=== PATIENT | female | born 1985 | race Caucasian/White ===

== ENCOUNTER → 2016-04-20 | Outpatient (CLI) | payer OTHER ==
--- NOTE | 2016-04-20 13:51 | US ---
Thyroid Ultrasound History: Enlarged thyroid. Possible nontoxic goiter (E04.9). Findings: There is diffusely heterogeneous echotexture to the right and left lobes of the thyroid. No focal mass is seen. Right lobe thyroid: The right lobe of the thyroid measures 4.9 x 2.5 x 2.2 cm. There is normal color flow pattern to the right lobe of the thyroid. Left lobe thyroid: The left lobe of the thyroid measures 5.1 x 2.3 x 1.8 cm. There is normal color fl ow pattern to the left lobe of the thyroid. No significant lymphadenopathy is seen. Benign-appearing lymph nodes are seen bilaterally along the c ervical chain. Impression: Diffusely heterogeneous echotexture to the right and left lobes of the thyroid with mild enlargement diffusely. No focal abnormality. This pattern can be seen with mild goiter versus possibi lity of thyroiditis. Clinical correlation recommended.
== END ==
LOC: FIMAGING 12:18
PROVIDERS: ATTEND Obstetrics & Gynecology
DX: E04.9 Nontoxic goiter, unspecified (principal)

== ENCOUNTER → 2017-08-20 | Outpatient (CLI) | payer OTHER | LOC: FIMAGING 07:37 | PROVIDERS: ATTEND Obstetrics & Gynecology | DX: O09.292 Supervision of pregnancy with other poor reproductive or obstetric history, second trimester (principal); Z3A.24 24 weeks gestation of pregnancy ==

== ENCOUNTER → 2017-09-19 | Outpatient (CLI) | payer OTHER | LOC: FIMAGING 08:52 | PROVIDERS: ATTEND Obstetrics & Gynecology | DX: O09.293 Supervision of pregnancy with other poor reproductive or obstetric history, third trimester (principal); Z3A.28 28 weeks gestation of pregnancy; Z79.82 Long term (current) use of aspirin ==